=== PATIENT | male | born 1950 | race Caucasian/White ===

== ENCOUNTER 2017-04-11 11:31 | Inpatient (IN) ==
[2017-04-11] MEDS ORDERED: Heparin 1,000 UNITS/500 mL NS 500 ML ONE ×3 (11:48→15:34)
--- NOTE | 2017-04-11 11:49 | Anesthesia Evaluation PreOp ---
Date of Encounter: 04/11/17 Time of Encounter: 11:47 - Past History Planned Operation: right CEA Cardiac History: HTN, Hyperlipidemia, Cardiac Surgery, Other (PAD with high grade right carotid stenosis CAD) Pulmonary History: Denies Any Significant HX RECYCLING OR RUBBISH COLLECTOR History: Denies Any Significant HX Other Medical History: Renal (history of stones and CKD), Diabetes Type II Anesthesia History: No Prior Anesthetic Complications, Past Anesthesia (Left TKA 01/06, CABG 3 vessel 2014), Problems (difficult iv access) Alcohol Use: none Drug use: none Medications and Allergies Aspirin [Adult Low Dose Aspirin EC] 81 mg PO DAILY 01/05/16 [History] Atorvastatin [Lipitor] 40 mg PO HS 01/05/16 [History] Cholecalciferol (Vitamin D3) [Vitamin D3] 2,000 unit PO DAILY 01/05/16 [History] DiphenhydraMINE [Benadryl] 25 mg PO Q6HR 01/05/16 [History] Levothyroxine [Synthroid] 50 mcg PO DAILY 01/05/16 [History] Losartan Potassium [Cozaar] 50 mg PO DAILY 01/05/16 [History] Magnesium 250 mg PO DAILY 01/05/16 [History] Metoprolol XL (24 HR) Succ [Toprol Xl] 50 mg PO DAILY 01/05/16 [History] [place]-3/Dha/Epa/Fish Oil [Fish Oil 1,000 mg Softgel] 1 each PO DAILY 01/05/16 [ History] amLODIPine [Norvasc] 10 mg PO DAILY 01/05/16 [History] Mv-Mn/FA/Vit K1/Lycop/Lut/Zeax [Ocuvite Eye + Multi Tablet] 1 each PO DAILY [History] Oxybutynin Chloride [Ditropan Xl] 5 mg PO DAILY 04/08/17 [History] Oxybutynin Chloride [Ditropan Xl] 10 mg PO DAILY 04/08/17 [History] Allergies melon Allergy (Verified 01/05/16 17:13) Swelling of Lip/Tongue/Throat watermelon, cantaloupe, cucumber lisinopril Adverse Reaction (Verified 01/05/16 17:13) Cough - Meds/Allergy Pre-op Review Medications Reviewed: Yes Allergies Reviewed: Yes Beta Blockers on Current Med List: Yes Anesthesia Results - Labs Laboratory Tests 10/09/14 03/30/17 03/30/17 10:17 10:53 10:53 Hgb 14.0 POC Hct 18 L Plt Count 126 L Sodium 138 Potassium 4.1 BUN 31 H Creatinine 1.66 H - Imaging EKG: report reviewed (sinus kim, old inferior RI) Anesthesia Exam Weight: 101kg - HEENT Pupil (Motor): EOMI Mallampati: III Teeth: Normal Oral Opening: Greater than 3 - RECYCLING OR RUBBISH COLLECTOR LOC: Oriented RECYCLING OR RUBBISH COLLECTOR Motor: Normal RUE, Normal LUE, Normal RLE, Normal LLE, Normal Face RECYCLING OR RUBBISH COLLECTOR Sensory: Normal: RUE, LUE, RLE, LLE, Face - Cardiac Rhythm: Regular Murmur: None - Pulmonary Breath Sounds: bilateral Clear Respiratory Effort: Symmetrical Anesthesia Assess/Plan ASA Score: 3 Modified Zoran Scale for Level of Consciousness: Cooperative, oriented, and tranquil Anesthetic Plan: General Monitoring Plan: Standard Monitors, A-Line Recovery Plan: PACU (Doscissed rosls pf GA and need for arterial line. Advised may need central line if unable to place peripheral access. [employer] answered and agrees to proceed.)
[2017-04-11] MEDS ORDERED: CeFAZolin Pre 2,000 MG/100 ML 2,000 MG/100 ML BAG IVPB ONE (12:03)
[2017-04-11] MEDS ORDERED: Ringers Solution, Lactated 1,000 ML IVC SCH (12:15)
[2017-04-11] MEDS ORDERED: *HR* FentaNYL (PF) 100 MCG/2 ML VIAL ONE ×2 (12:57→14:03)
[2017-04-11] MEDS ORDERED: *HR* Propofol 200 MG/20 ML VIAL IVP ONE (12:57)
[2017-04-11] MEDS ORDERED: *HR* Rocuronium Bromide 50 MG/5 ML VIAL ONE (12:58)
[2017-04-11] MEDS ORDERED: *HR* Succinylcholine 200 MG/10 ML VIAL IVP ONE (12:58)
[2017-04-11] MEDS ORDERED: Lidocaine -MPF 2% 2 ML VIAL ONE (12:58)
[2017-04-11] MEDS ORDERED: Ondansetron 4 MG/2 ML VIAL ONE (12:58)
[2017-04-11] MEDS ORDERED: Dexamethasone 4 MG/ML VIAL ONE (12:58)
[2017-04-11] MEDS ORDERED: *HR* Midazolam HCl 2 MG/2 ML VIAL ONE (12:58)
[2017-04-11] MEDS ORDERED: Lidocaine -MPF 4% 5 ML AMPUL ONE (13:01)
[2017-04-11] MEDS ORDERED: *HR* Remifentanil 2 MG VIAL IVP ONE (13:02)
[2017-04-11] MEDS ORDERED: EPHEDrine 50 MG/ML VIAL ONE ×2 (13:05→16:14)
[2017-04-11] MEDS ORDERED: Lidocaine 1% 20 ML MDV ONE (13:09)
--- NOTE | 2017-04-11 13:15 | History & Physical Report ---
Date of Encounter: 04/11/17 Time of Encounter: 13:14 24 Hour HP Update - Instructions Instructions: If the History and Physical is less than 30 days old and was completed prior to A.M. admission and or procedure and has NOT been updated on calendar day of procedure please complete this update prior to performing procedure. - Update Patient reports changes in Medical Condition: No Changes in examination, assessment, or condition: No Changes in Medication: No Preop tests/diagnostics Reviewed: Yes Surgery Remains Indicated: Yes Consent for Planned Operative Procedure(s) Verified: Yes - Pre-Operative Checklist Preoperative Checklist Indicated: Yes Prophylactic Antibiotic Ordered: Yes Home Medications Include Beta Lizzy: Yes Beta Lizzy Taken Today (Day of Surgery): Yes Beta Lizzy Taken Yesterday (Day Prior to Surgery): Yes Is VTE Prophylaxis Indicated?: Yes
[2017-04-11] MEDS ORDERED: *HR* Promethazine 25 MG/ML VIAL IVP PRN (15:04)
[2017-04-11] MEDS ORDERED: *HR* Labetalol 20 MG/4 ML SYRINGE IVP PRN (15:04)
[2017-04-11] MEDS ORDERED: *HR* HYDROmorphone (PF) 1 MG/ML SYRINGE IVP PRN (15:04)
[2017-04-11] MEDS ORDERED: *HR* Heparin 5,000 UNIT/ML VIAL ONE (15:09)
[2017-04-11] MEDS ORDERED: Neostigmine Methylsulfate 3 MG/3 ML SYRINGE ONE (16:17)
--- NOTE | 2017-04-11 16:52 | Operative Note ---
Date of procedure: 04/11/17 Pre-op diagnosis: right carotid stenosis Post-op diagnosis: same Procedure: right carotid endarterectomy with 10 Fr shunt and Hemashield patch angioplasty Complications: none Anesthesia: JOHNA Surgeon: Uriah Barnett Estimated blood loss (cc): 150 Specimen: none Condition: stable Disposition: PACU Procedure in Detail: History Gómez Coon is a 66-year-old white male who has known carotid artery disease. He has been followed with outpatient testing. Recent duplex scan and showed a significant change in the right internal carotid artery. This then led to a carotid angiogram performed last week. This demonstrated a 90% lesion that was densely calcified in the right internal carotid artery and bulbar area. He now comes to surgery for this lesion which has remained asymptomatic. Procedure After informed consent was obtained the patient was taken to the operating room. General endotracheal anesthesia was established as well as placement of an arterial line. The right neck was then sterilely prepped and draped. A timeout protocol was observed. An oblique incision was made on the right neck. Dissection was carried down to the carotid sheath which was then opened. Controls obtained of the carotid arteries. Heparin was given in a dose of 6000 units intravenously. After 3 minutes later the vessels were clamped with the internal carotid artery clamped first. The internal carotid artery had a very tortuous and somewhat right angle configuration in a posterolateral orientation. An 11 blade knife and Bridges scissors were used to open the vessel. A 10 Danish shunt was then inserted atraumatically. Patency of the shunt was confirmed by the use of intraoperative Doppler. Inspection of the plaque revealed a very thick and dense plaque that was somewhat circular at the bulbar area and orifice of the internal carotid artery. There is also a tapering of the plaque both proximally and distally as expected. The endarterectomy was then begun at the distal aspect of the common carotid artery. A circumferential dissection plane was established. It was then carried proximally and distally. Attention was paid to endarterectomize the orifice of the superior thyroid and external carotid artery as well. The endpoint on the internal carotid artery was smooth.No tacking sutures were necessary. The bed of the vessel was carefully inspected for any residual debris. A patch angioplasty was then performed using a Hemashield patch. This was sewn into position using 2 6-0 Prolene sutures. Leaving a small space open on the suture line the shunt was clamped divided and removed. The final few sutures were then placed. The internal carotid artery was allowed to backbleed and reclamped. The common and external were opened and finally the internal was reopened. The patient tolerated this maneuver well. There is no hemodynamic distress. Excellent pulses and Doppler signals were identified throughout the carotid system. The area was irrigated with antibiotic-containing solution. A superficial cervical block using half percent Marcaine was performed. The wound was then closed in layers using absorbable suture. No drains were placed. The patient was extubated in the operating room. He was found to be neurologically intact. He was then taken to the recovery room in stable condition.
--- NOTE | 2017-04-11 17:31 | Anesthesia Evaluation Post Op ---
Date of Encounter: 04/11/17 Time of Encounter: 17:29 - Vital Signs Vital Signs: Vital Signs/O2 Sat/Glucose, Most Current Temp Pulse Resp BP Pulse Ox 04/11/17 17:20 66 16 139/73 98 04/11/17 17:10 78 18 141/75 98 04/11/17 17:00 98.1 F 85 18 152/73 100 - Lungs Lungs: Clear Ascult./Percussion - Airway Airway: Non-obstructed - Cardiovascular Regular Rate - Mental Status Mental Status: Alert & Oriented, Answers Appropriately - Pain Pain Scale: 2 Pain Scale used: Numeric (1 - 10) - Nausea Vomiting Nausea Vomiting: Not Present - Hydration Hydration: Tolerates oral liquids - Discharge PostOp Status: Discharge Patient to home Anes Supervising Prov Stmt: Pt seen/evaluated, VSS and pt has met criteria for discharge to floor. - MD Ki
[2017-04-11] MEDS ORDERED: *HR* HYDROcodone/Acet 5/325 mg TABLET PO PRN (17:52)
[2017-04-11] MEDS ORDERED: Naloxone 0.4 MG/ML INJ IVP PRN (17:52)
[2017-04-11] MEDS ORDERED: Ondansetron 4 MG/2 ML VIAL IVP PRN (17:52)
[2017-04-11] MEDS ORDERED: Acetaminophen 325 MG TABLET PO PRN (17:52)
[2017-04-11] MEDS ORDERED: *HR* Morphine 2 MG/ML SYRINGE IVP PRN ×2 (17:52)
[2017-04-11] MEDS: ceFAZolin 2,000 MG in D5% in Water 100 ML IVPB SCH (23:43)
[2017-04-12 07:00] LABS: Calcium 9.4 mg/dL (8.6-10.8); Potassium 4.1 mEq/L (3.5-4.5)
[2017-04-12 07:07] LABS: Basophils % 0.2 %; Eosinophils % 0.2 %; Hematocrit 37.2 % (37.5-50.1); Hemoglobin 12.5 g/dL (12.9-16.9); Immature Granulocytes % 0.5 % (0-4); Lymphocytes # 0.6 K/mcL (0.6-4.6); Lymphocytes % 8.6 %; Mean Corpuscular HGB Conc 33.6 g/dL (31.6-35.5); Mean Corpuscular Hemoglobin 29.8 pg (28.0-33.3); Mean Corpuscular Volume 88.8 fL (83.0-100.0); Mean Platelet Volume 11.4 fL (9.4-12.4); Monocytes # 0.5 K/mcL (0.0-1.3); Monocytes % 6.8 %; Neutrophils # 5.5 K/mcL (1.6-8.9); Platelet Count 124 K/mcL (140-400); Red Blood Count 4.19 M/mcL (4.19-5.50); Red Cell Distribution Width 13.7 % (11.5-14.5); Segmented Neutrophils % 83.7 %
--- NOTE | 2017-04-12 08:15 | Discharge Summary ---
Date of Encounter: 04/12/17 Time of Encounter: 08:11 - Discharge Diagnosis (1) DM type 2 (diabetes mellitus, type 2) Priority: Secondary Status: Chronic Comments: under medical control Qualifiers: Diabetes mellitus complication status: with circulatory complication Diabetes mellitus complication detail: with other circulatory complications Diabetes mellitus terminal clerk insulin use: unspecified terminal clerk insulin use status Qualified Code(s): E11.59 - Type 2 diabetes mellitus with other circulatory complications (2) CAD (coronary artery disease) Priority: Secondary Status: Chronic Comments: under medical control Qualifiers: Coronary Disease-Associated Artery/Lesion type: [place] artery [place] vs. transplanted heart: unspecified whether [place] or transplanted heart Associated angina: with unspecified angina Qualified Code(s): I25.119 - Atherosclerotic heart disease of [place] coronary artery with unspecified angina pectoris (3) Carotid arterial disease Priority: Primary Status: Chronic Comments: high grade right carotid stenosis Qualifiers: Laterality: right Qualified Code(s): I77.9 - Disorder of arteries and arterioles, unspecified - Discharge Medications Home Medications: Aspirin [Adult Low Dose Aspirin EC] 81 mg PO DAILY 01/05/16 [History] Atorvastatin [Lipitor] 40 mg PO HS 01/05/16 [History] Cholecalciferol (Vitamin D3) [Vitamin D3] 2,000 unit PO DAILY 01/05/16 [History] DiphenhydraMINE [Benadryl] 25 mg PO Q6HR 01/05/16 [History] Levothyroxine [Synthroid] 50 mcg PO DAILY 01/05/16 [History] Losartan Potassium [Cozaar] 50 mg PO DAILY 01/05/16 [History] Magnesium 250 mg PO DAILY 01/05/16 [History] Metoprolol XL (24 HR) Succ [Toprol Xl] 50 mg PO DAILY 01/05/16 [History] [place]-3/Dha/Epa/Fish Oil [Fish Oil 1,000 mg Softgel] 1 each PO DAILY 01/05/16 [ History] amLODIPine [Norvasc] 10 mg PO DAILY 01/05/16 [History] Mv-Mn/FA/Vit K1/Lycop/Lut/Zeax [Ocuvite Eye + Multi Tablet] 1 each PO DAILY [History] Oxybutynin Chloride [Ditropan Xl] 10 mg PO DAILY 04/08/17 [History] Allergies/Adverse Reactions: Allergies melon Allergy (Verified 04/11/17 12:25) Swelling of Lip/Tongue/Throat watermelon, cantaloupe, cucumber lisinopril Adverse Reaction (Verified 04/11/17 12:25) Cough Date of admission: 04/11/17 17:38 Primary care physician: Kelsey Hannon CNP Consults: none Procedure(s) Performed: right carotid endarterectomy Discharging clinician: Uriah Barnett Anticipated date of discharge: 04/12/17 - Patient Status Disposition: Home, Self-Care Condition: Good Functional capacity at discharge: independent ambulation Overall status at discharge: patient is progressing back to baseline - Discharge Instructions Instructions: Carotid Endarterectomy (DC), Diabetes Mellitus Type 2 in Adults ( DC), Peripheral Vascular Disorders (DC), Acute Wound Care (DC) Follow Up With: Kelsey Hannon CNP [Primary Care Provider] - 04/14/17 10:30 am Uriah Barnett MD [Partnered Physician] - 04/27/17 1:30 pm Additional Instructions: Keep right neck incision dry for total of 5 days following surgery. Patient may sleep in any position that is comfortable for him. Patient may ambulate both inside and outside and up and down stairs. 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 Resume usual home medications. Continue to use ice pack on right neck for 48-72 hours while at home. Patient is to follow-up with Dr. Barnett in 2 weeks. - Diet and Activity Activity: increase activity as tolerated Diet: diabetic diet - Hospital Course Hospital course: Mr. Coon is a 66 year old male Patient underwent a right carotid endarterectomy under general endotracheal anesthesia yesterday. The patient tolerated the procedure well. He awoke from anesthesia without difficulty. He remained neurologically intact. He had an uneventful evening. On postoperative day #1 the patient was awake and alert and neurologically intact. He will ambulate and if stable will be discharged home later today. Instructions regards to diet and exercise and medications were reviewed with the patient prior to discharge. - Time Spent with Patient Total time spent providing and/or coordinating discharge services: Exam Vital Signs, Last 4 Hours Temp Pulse Resp BP Pulse Ox 04/12/17 07:05 98.7 F 63 16 127/71 96 04/12/17 04:30 98.2 F 76 16 118/65 94 General: Present: Conversant, No Apparent Distress HEENT: Present: Atraumatic, Normocephaly, Trachea midline Neck: Absent: JVD, Midline deformity, Tracheal deviation Cardiac: Present: Reg Rate and Rhythm, Normal S1 and S2 Neuro: Present: Alert and responsive, No focal deficits noted, Cranial nerves grossly intact, Motor nerves grossly intact, Sensory nerves grossly intact Vascular: Present: Normal capillary refill, Surgical incisions (clean and dry). Absent: Edema Skin: Present: No rashes noted on visualized skin - VTE Documentation of Mechanical Device: Intermittent pneumatic compression device
[2017-04-12] MEDS: ceFAZolin 2,000 MG in D5% in Water 100 ML IVPB SCH (08:23)
[2017-04-12] MEDS ORDERED: amLODIPine 5 MG TABLET PO SCH (09:00)
[2017-04-12] MEDS ORDERED: Cholecalciferol (D-3) 1,000 UNIT TABLET PO SCH (09:00)
[2017-04-12] MEDS ORDERED: (Omega-3/Dha/Epa/Fish Oil [Fish Oil 1,000 Mg Softgel] PO SCH (09:00)
[2017-04-12] MEDS ORDERED: Multivit/Ca/Min/Fe/FA 1 TAB TABLET PO SCH (09:00)
[2017-04-12] MEDS ORDERED: Aspirin Enteric Coated 81 MG Tablet PO SCH (09:00)
[2017-04-12] MEDS ORDERED: Metoprolol XL (24 HR) Succ 50 MG TAB.ER.24H PO SCH (09:00)
[2017-04-12] MEDS ORDERED: Magnesium Oxide 400 MG TABLET PO SCH (09:00)
[2017-04-12 11:18] VITALS: BP 128/90
== END 2017-04-12 13:00 | disposition home or self-care (01) | DRG 39 ==
LOC: SAMDAY 11:31 → 2NNU 17:38
PROVIDERS: ADMIT Surgery Vascular Surgery; ATTEND Surgery Vascular Surgery